=== PATIENT | female | born 1950 ===

== ENCOUNTER 2018-01-15 07:21 | Day surgery (SDC) | payer OTHER ==
[2018-01-15] MEDS ORDERED: Lidocaine PF 2% (5 ml) Inj (For Cardiac Arrhy) ONE ×2 (08:57→09:56)
[2018-01-15] MEDS ORDERED: Verapamil 2 ML ONE (09:03)
[2018-01-15] MEDS ORDERED: Nitroglycerin 50mg in D5W 50 MG/250 ML BOTTLE IV ONE (09:03)
[2018-01-15] MEDS ORDERED: Iodixanol 320 MG/ML 100 ML BOTTLE IV ONE (09:10)
[2018-01-15] MEDS ORDERED: Iodixanol 320 MG/ML 200 ML BOTTLE IV ONE (09:10)
[2018-01-15] MEDS ORDERED: Iohexol 350mgl/ml 50 ML ONE (09:10)
[2018-01-15] MEDS ORDERED: Phenylephrine 10 mg/ml Inj ONE (09:11)
[2018-01-15] MEDS ORDERED: Midazolam 2 MG/2 ML VIAL ONE (09:25)
[2018-01-15] MEDS ORDERED: Sodium Chloride 0.45% 1,000 ML IV SCH (10:45)
[2018-01-15 11:42] VITALS: RESP 18; TEMP 98.6
[2018-01-15] MEDS ORDERED: Bacitracin 500 Units/gm Oint Foilpak UD ONE (14:03)
--- NOTE | 2018-01-15 15:07 | CARD ---
APPROVED REPORT Date of service: 01/15/2018 EKG Measurement Heart [id number]-25 [id number] <Conclusion> Normal sinus rhythm Normal ECG
[2018-01-15 15:16] VITALS: BP 132/77; PULSE 89
--- NOTE | 2018-01-18 12:07 | CARDCATH ---
Copied To: Tomás Beckford MD Attending MD: Tomás Beckford MD PROCEDURE DATE: 01/15/2018 PROCEDURE: Percutaneous coronary intervention and drug-eluting stent placement of the left circumflex coronary artery. CLINICAL INDICATIONS: 1. Chest pain and non-ST elevation myocardial infarction. 2. Coronary artery disease. 3. Hypertension. 4. Hyperlipidemia. 5. Chronic obstructive lung disease. 6. Thoracic aortic aneurysm. 7. Abdominal aortic aneurysm. 8. Atrial fibrillation. 9. Systolic congestive heart failure. REFERRING PHYSICIANS: 1. Dr. Mack Alberto. 2. Dr. Jonn Garcia. PERFORMING PHYSICIAN: Tomás Beckford MD. DETAILS OF PROCEDURE: After informed consent, the patient was prepped and draped in the usual sterile fashion. A 2% lidocaine was given in the for local anesthesia. Using micropuncture technique, 6-Hungarian sheath was introduced in the right radial artery. The patient was preloaded with aspirin, Plavix and IV heparin. Originally, coronary intervention was attempted via right radial artery. However, due to tortuous subclavian artery, it was difficult to take the wire up to the ascending aorta, so the site was changed to left groin. A 2% lidocaine was given in the left groin for local anesthesia. Using micropuncture technique, 6-Hungarian sheath was introduced into the left common femoral artery. XBLAD 3.5 guide catheter was engaged into the left main coronary artery. Contrast injected and left coronary angiogram was done. Coronaries were ectatic. The distal circumflex lesion, which has a 90 to 95% stenosis, is located. There is a WILFRED-3 flow noted distal to the lesion. The coronary lesion was threaded with Runthrough coronary wire. The distal proximal lesion was predilated using 2.0 x 15 Compliant balloon and stented with 2.75 x 18 drug-eluting stent with excellent final angiographic results. Postprocedure, groin hemostasis accomplished using Perclose suture device. Postprocedure, excellent WILFRED-3 flow noted distal to the stent. Tomás Beckford MD
== END 2018-01-15 15:29 | disposition short-term general hospital (02) ==
LOC: CATH 07:21 → 2RSO 11:03 → CATH 15:29
PROVIDERS: ATTEND Internal Medicine Cardiovascular Disease
DX: I21.4 Non-ST elevation (NSTEMI) myocardial infarction (principal); I11.0 Hypertensive heart disease with heart failure; I50.21 Acute systolic (congestive) heart failure; I25.10 Atherosclerotic heart disease of native coronary artery without angina pectoris; I48.91 Unspecified atrial fibrillation; J44.9 Chronic obstructive pulmonary disease, unspecified; F17.210 Nicotine dependence, cigarettes, uncomplicated; I71.2 Thoracic aortic aneurysm, without rupture; I71.4 Abdominal aortic aneurysm, without rupture; E11.9 Type 2 diabetes mellitus without complications; E78.5 Hyperlipidemia, unspecified; K59.00 Constipation, unspecified; Z82.49 Family history of ischemic heart disease and other diseases of the circulatory system
CPT/HCPCS: 85175; 93005; 99152; 99153; C1725; C1760; C1769 ×3; C1874; C1887 ×2; C1894; C9600; J1644 ×2; J2250; J3010; J7030; J7040; Q9966; Q9967